=== PATIENT | male | born 1945 | race Caucasian/White ===

== ENCOUNTER 2018-01-18 19:57 | Inpatient (IN) | payer MEDICARE, MEDICAID ==
--- NOTE | 2018-01-18 20:12 | ER Document Report ---
ED General - General Stated Complaint: ALTERED MENTAL STATUS Time Seen by Provider: 01/18/18 20:05 Notes: Patient is a 72-year-old male that comes by EMS from home for chief complaint of altered mental status. Family reported to EMS that patient has had decline in mental status for the past 4 days where he has become disoriented to person, place, time. EMS states that patient was reported to have underlying dementia but never has been this confused. Patient uncooperative and had to be made to come per EMS. Patient is on no daily medications, only reported medical history otherwise is colon cancer, family not present, patient unable to give me any details about this. History is very limited due to patient's mental status, but he keeps repeating, "I'm all messed up", and "there is stuff inside me" while pointing at his arms. - Related Data Allergies/Adverse Reactions: No Known Allergies Allergy (Verified 01/18/18 20:47) Past Medical History - General Information source: Patient, Emergency Med Personnel - Social History Smoking Status: Unknown if Ever Smoked Lives with: Family Family History: Reviewed & Not Pertinent Neurological Medical History: Reports: Other - Dementia Malignancy Medical History: Reports Hx Colorectal Cancer Review of Systems - Review of Systems Constitutional: See HPI EENT: No symptoms reported Cardiovascular: No symptoms reported Respiratory: No symptoms reported Gastrointestinal: No symptoms reported Genitourinary: No symptoms reported Male Genitourinary: No symptoms reported Musculoskeletal: No symptoms reported Skin: No symptoms reported Hematologic/Lymphatic: No symptoms reported Neurological/Psychological: See HPI Physical Exam - Vital signs Vitals: Resp 29 H 01/18/18 21:00 - General General appearance: Anxious In distress: None - Patient is thin, covered in urine and feces with very soiled clothing, moves weakly but it does not appear to be in distress - HEENT Head: Normocephalic, Atraumatic Eyes: Normal Conjunctiva: Normal Extraocular movements intact: Yes Eyelashes: Normal Pupils: PERRL Mucous membranes: Normal Pharynx: Normal Neck: Normal - Respiratory Respiratory status: No respiratory distress. No: Respiratory distress, Labored Breath sounds: Normal, Other - Scattered rhonchi, no overt rales, no wheezing. No: Decreased air movement - Cardiovascular Rhythm: Regular. No: Tachycardia Heart sounds: Normal auscultation, S1 appreciated, S2 appreciated - Abdominal Inspection: Normal Tenderness: Nontender. No: Tender, Guarding - Back Back: Normal, Nontender - Extremities General upper extremity: Normal inspection, Nontender, Normal ROM, Normal strength General lower extremity: Other - There is ecchymosis noted on his thighs and calves, only ecchymosis on the back of the legs, none on the front, distal pulses intact, movement intact, sensation intact - Neurological Cognition: Confused Orientation: Disoriented to person, Disoriented to place, Disoriented to time, Disoriented to events [place] Coma Scale Motor: Obeys Commands - Patient will obey some commands Speech: Normal. No: Dysarthria Cranial nerves: Normal. No: Facial palsy Motor strength normal: LUE, RUE, LLE, RLE - Skin Skin Temperature: Warm Skin Moisture: Dry Skin Color: Other - slightly jaundiced Skin irregularity: other - Approximately stage II decubitus ulcer Course - Re-evaluation Re-evalutation: Patient is very thin, confused, smells of both urine and feces, has heavily stained and soiled undergarments and shirt. He is awake and complaining but not oriented. 01/19/18 CT of the head and chest x-ray are unremarkable. CBC shows normocytic anemia with a hemoglobin of 7.2, I did check and found he had no bloody stools, no abdominal pain on exam. Vital signs are unremarkable. Unsure if he is chronically anemic. Chemistry shows dehydration with bicarbonate of 18, given IV fluids. Otherwise nonspecific. I spoke with family, they did relate increased confusion, not eating, and to decreasing strength. They state that he generally refuses to be seen by his primary care provider and therefore they do not see him very often. Urinalysis shows infection, given Rocephin. Called and spoke with Dr. Carroll, patient will be transfused 2 units packed red blood cells, admitted to the medical floor. - Vital Signs Vital signs: Temp Pulse Resp BP Pulse Ox 98.1 F 98 23 H 107/61 94 01/19/18 04:12 01/19/18 04:12 01/19/18 04:12 01/19/18 04:12 01/19/18 04:12 - Laboratory Result Diagrams: 01/18/18 21:28 01/18/18 21:28 Laboratory results interpreted by me: 01/18/18 01/18/18 01/18/18 21:28 21:28 21:28 RBC 2.55 L Hgb 7.2 L Hct 23.1 L MCHC 31.3 L RDW 19.5 H Seg Neutrophils % 81.9 H Lymphocytes % 11.7 L Retic Count (auto) APTT 40.1 H Carbon Dioxide 18 L BUN 39 H Creatinine 1.29 H Est GFR (Non-Af Amer) 55 L Iron TIBC Total Bilirubin 2.0 H Direct Bilirubin 0.9 H Alkaline Phosphatase 190 H Ammonia Albumin 3.3 L Folate Urine Ketones Urine Blood Urine Urobilinogen Ur Leukocyte Esterase Crossmatch 01/18/18 01/18/18 01/18/18 21:28 21:28 21:28 RBC Hgb Hct MCHC RDW Seg Neutrophils % Lymphocytes % Retic Count (auto) 4.77 H APTT Carbon Dioxide BUN Creatinine Est GFR (Non-Af Amer) Iron < 10.1 L TIBC 236 L Total Bilirubin Direct Bilirubin Alkaline Phosphatase Ammonia < 8.7 L Albumin Folate 2.16 L Urine Ketones Urine Blood Urine Urobilinogen Ur Leukocyte Esterase Crossmatch 01/18/18 01/18/18 22:20 23:33 RBC Hgb Hct MCHC RDW Seg Neutrophils % Lymphocytes % Retic Count (auto) APTT Carbon Dioxide BUN Creatinine Est GFR (Non-Af Amer) Iron TIBC Total Bilirubin Direct Bilirubin Alkaline Phosphatase Ammonia Albumin Folate Urine Ketones 20 H Urine Blood MODERATE H Urine Urobilinogen 4.0 H Ur Leukocyte Esterase LARGE H Crossmatch See Detail Discharge - Discharge Clinical Impression: Altered mental status Qualifiers: Altered mental status type: unspecified Qualified Code(s): R41.82 - Altered mental status, unspecified Urinary tract infection Qualifiers: Urinary tract infection type: site unspecified Hematuria presence: without hematuria Qualified Code(s): N39.0 - Urinary tract infection, site not specified Anemia Qualifiers: Anemia type: unspecified type Qualified Code(s): D64.9 - Anemia, unspecified Condition: Stable Disposition: ADMITTED INPATIENT Admitting Provider: Carroll Unit Admitted: Medical Floor
--- NOTE | 2018-01-18 20:51 | RADIOLOGY REPORT (SQ) ---
EXAM DESCRIPTION: CT HEAD WITHOUT COMPLETED DATE/TIME: 01/18/2018 8:40 pm REASON FOR STUDY: AMS COMPARISON: None. TECHNIQUE: Axial images acquired through the brain without intravenous contrast. Images reviewed wi th bone, brain and subdural windows. Images stored on PACS. All CT scanners at this facility use dose modulation, iterative reconstruction, and/or weight based d osing when appropriate to reduce radiation dose to as low as reasonably achievable (ALARA). [facility]: Dose Right [facility]: CareDose [facility]: Dose Right [facility]: Teradose 4D [facility]: Smart STEERads RADIATION DOSE: CT Rad equipment meets quality standard of care and radiation dose reduction techniq ues were employed. CTDIvol: 67.0 mGy. DLP: 1316 mGy-cm. mGy. LIMITATIONS: None. FINDINGS: VENTRICLES: Normal size and contour. CEREBRUM: No masses. No hemorrhage. No midline shift. No evidence for acute infarction. Cortical a trophy. Normal bryan/white matter differentiation. No areas of low density in the white matter. CEREBELLUM: No masses. No hemorrhage. No alteration of density. No evidence for acute infarction. EXTRAAXIAL SPACES: No fluid collections. No masses. ORBITS AND GLOBE: No intra- or extraconal masses. Normal contour of globe without masses. CALVARIUM: No fracture. PARANASAL SINUSES: No fluid or mucosal thickening. SOFT TISSUES: No mass or hematoma. OTHER: No other significant finding. IMPRESSION: Involutional changes of aging with no acute intracranial process. EVIDENCE OF ACUTE STROKE: NO. COMMENT: Quality ID # [id number]: Final reports with documentation of one or more dose reduction techniques (e.g., Automated exposure control, adjustment of the mA and/or kV according to patient size, use of iterative reconstruction technique) TECHNICAL DOCUMENTATION: JOB ID: [id number] [employer]- All Rights Reserved Reading location - IP/workstation name: [email or web address]
--- NOTE | 2018-01-18 20:52 | RADIOLOGY REPORT (SQ) ---
EXAM DESCRIPTION: CHEST SINGLE VIEW COMPLETED DATE/TIME: 01/18/2018 8:36 pm REASON FOR STUDY: AMS COMPARISON: None. EXAM PARAMETERS: NUMBER OF VIEWS: One view. TECHNIQUE: Single frontal radiographic view of the chest acquired. RADIATION DOSE: NA LIMITATIONS: None. FINDINGS: LUNGS AND PLEURA: The lungs are hyperexpanded. There is no pulmonary infiltrate or pleura l effusion. There is no mass. MEDIASTINUM AND HILAR STRUCTURES: There are some calcified hilar nodes. HEART AND VASCULAR STRUCTURES: Heart normal in size. Normal vasculature. BONES: No acute findings. HARDWARE: None in the chest. OTHER: No other significant finding. IMPRESSION: Chronic lung changes with no acute cardiopulmonary disease. TECHNICAL DOCUMENTATION: JOB ID: [id number] [employer]- All Rights Reserved Reading location - IP/workstation name: [email or web address]
[2018-01-18 21:38] LABS: ABSOLUTE LYMPHOCYTES (AUTO) 0.9 10^3/uL (0.5-4.7); ABSOLUTE MONOCYTES (AUTO) 0.5 10^3/uL (0.1-1.4); ABSOLUTE NEUT (AUTO) 6.3 10^3/uL (1.7-8.2); BASOPHILS % (AUTO) 0.3 % (0-2); EOSINOPHILS % (AUTO) 0.1 % (0-6); HEMATOCRIT 23.1 % (37.9-51.0); LYMPHOCYTES % (AUTO) 11.7 % (13-45); MEAN CORPUSCULAR HEMOGLOBIN 28.4 pg (27.0-33.4); MEAN CORPUSCULAR HGB CONC 31.3 g/dL (32.0-36.0); MEAN CORPUSCULAR VOLUME 91 fl (80-97); PLATELET COUNT 264 10^3/uL (150-450); RED BLOOD COUNT 2.55 10^6/uL (4.35-5.55); RED CELL DISTRIBUTION WIDTH 19.5 % (11.5-14.0); SEGMENTED NEUTROPHILS % (AUTO) 81.9 % (42-78); TOTAL CELLS COUNTED % (AUTO) 100 %; WHITE BLOOD COUNT 7.7 10^3/uL (4.0-10.5)
[2018-01-18 21:43] LABS: HEMOGLOBIN 7.2 g/dL (13.5-17.0)
[2018-01-18 21:46] LABS: INTERNATIONAL RATION (INR) 1.04; PROTHROMBIN TIME 14.3 SEC (11.4-15.4)
[2018-01-18 21:47] LABS: PARTIAL THROMBOPLASTIN TIME 40.1 SEC (23.5-35.8)
[2018-01-18 21:59] LABS: ALANINE AMINOTRANSFERASE 24 U/L (21-72); ALBUMIN 3.3 g/dL (3.5-5.0); ALKALINE PHOSPHATASE 190 U/L (38-126); ANION GAP 19 (5-19); ASPARTATE AMINO TRANSFERASE 20 U/L (17-59); BILIRUBIN,DIRECT 0.9 mg/dL (0.0-0.4); BLOOD UREA NITROGEN 39 mg/dL (7-20); CARBON DIOXIDE 18 mmol/L (22-30); CHLORIDE 101 mmol/L (98-107); CREATINE KINASE 113 U/L (55-170); GLUCOSE 105 mg/dL (75-110); POTASSIUM 4.6 mmol/L (3.6-5.0); SODIUM 137.6 mmol/L (137-145); TOTAL PROTEIN 6.3 g/dL (6.3-8.2)
[2018-01-18] MEDS ORDERED: NORMAL SALINE 1000 ML 1,000 ML IV ONE (22:11)
[2018-01-19 00:12] LABS: APPEARANCE,URINE CLOUDY; BILIRUBIN,URINE NEGATIVE (NEGATIVE); COLOR,URINE AMBER; GLUCOSE, URINE NEGATIVE (NEGATIVE); KETONES,URINE 20 mg/dL (NEGATIVE); LEUKOCYTE ESTERASE,URINE LARGE (NEGATIVE); NITRITE,URINE NEGATIVE (NEGATIVE); PROTEIN,URINE NEGATIVE (NEGATIVE); URINE SPECIFIC GRAVITY 1.015
[2018-01-19] MEDS ORDERED: CEFTRIAXONE 1 GM/D5W RTU 1 GM/50 ML RTUPB IV ONE (00:17)
[2018-01-19] MEDS ORDERED: NORMAL SALINE 250 ML IV PRN ×2 (00:22)
[2018-01-19 00:47] LABS: ABSOLUTE RETICS # 0.122 10^6/uL (0.028-0.122); RETICULOCYTE COUNT (AUTO) 4.77 % (0.66-2.85)
[2018-01-19 01:17] LABS: IRON(TIBC) < 10.1 ug/dL (49-181)
[2018-01-19] MEDS ORDERED: CEFTRIAXONE INJ 1000 MG VIAL ONE (01:49)
[2018-01-19 02:18] LABS: FOLATE 2.16 ng/mL (>2.76)
--- NOTE | 2018-01-19 08:04 | PDOC H&P ---
History of Present Illness Admission Date/PCP: 01/19/18 00:29 MARTA MITCHELL MD Patient complains of: confusion History of Present Illness: DAVID CROCKER is a 72 year old 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 When I last saw him in 2014, he was on citalopram and alfuzosin. 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 1997 & 2001 bowel obstruction. He had neurogenic bladder and hesitancy and fecal incontinence. 2004 Cscop was ok. Past Medical History Cardiac Medical History: Reports: None Pulmonary Medical History: Reports: None EENT Medical History: Reports: None Neurological Medical History: Reports: None, Other - Dementia Endocrine Medical History: Reports: None Renal/ Medical History: Reports: None Malignancy Medical History: Reports: Colorectal Cancer GI Medical History: Reports: None Musculoskeltal Medical History: Reports: Arthritis Skin Medical History: Reports: None Psychiatric Medical History: Reports: Depression Traumatic Medical History: Reports: Other - 1996 pelvic fracture Hematology: Reports: None Infectious Medical History: Reports: None Past Surgical History Past Surgical History: Reports: Other - colectomy and 2 bowel obstructions Social History Information Source: Dr. Ledezma Lives with: Family Smoking Status: Current Every Day Smoker Number of Years Smokin Frequency of Alcohol Use: None Hx Recreational Drug Use: No Hx Prescription Drug Abuse: No - Advance Directive Resuscitation Status: Full Code Family History Family History: Reviewed & Not Pertinent Parental Family History Reviewed: Yes Children Family History Reviewed: Yes Sibling(s) Family History Reviewed.: Yes Medication/Allergy Home Medications: Unobtainable [Unobtainable] 01/19/18 Allergies/Adverse Reactions: No Known Allergies Allergy (Verified 01/18/18 20:47) Review of Systems ROS unobtainable: Due to mental status Physical Exam Vital Signs: Temp Pulse Resp BP Pulse Ox 98.0 F 91 24 H 100/64 93 01/19/18 06:21 01/19/18 06:21 01/19/18 06:21 01/19/18 06:21 01/19/18 06:21 Intake & Output 01/17/18 01/18/18 01/19/18 07:59 07:59 07:59 Intake Total 528 Balance 528 Weight 123 lb 7.342 oz General appearance: PRESENT: no acute distress Eye exam: ABSENT: conjunctival injection, scleral icterus Mouth exam: PRESENT: neck supple Neck exam: ABSENT: lymphadenopathy, tenderness, thyromegaly, tracheal deviation Respiratory exam: PRESENT: clear to auscultation claudia Cardiovascular exam: ABSENT: diastolic murmur, irregular rhythm, systolic murmur GI/Abdominal exam: ABSENT: mass, organolmegaly, tenderness Extremities exam: ABSENT: pedal edema Neurological exam: ABSENT: oriented to time, oriented to situation Psychiatric exam: ABSENT: anxious Focused psych exam: PRESENT: paranoid Results Laboratory Results: Abnormal - 24 hr 01/18/18 01/18/18 01/18/18 21:28 21:28 21:28 RBC 2.55 L Hgb 7.2 L Hct 23.1 L MCHC 31.3 L RDW 19.5 H Seg Neutrophils % 81.9 H Lymphocytes % 11.7 L Retic Count (auto) APTT 40.1 H Carbon Dioxide 18 L BUN 39 H Creatinine 1.29 H Est GFR (Non-Af Amer) 55 L Iron TIBC Total Bilirubin 2.0 H Direct Bilirubin 0.9 H Alkaline Phosphatase 190 H Ammonia Albumin 3.3 L Folate Urine Ketones Urine Blood Urine Urobilinogen Ur Leukocyte Esterase Crossmatch 01/18/18 01/18/18 01/18/18 21:28 21:28 21:28 RBC Hgb Hct MCHC RDW Seg Neutrophils % Lymphocytes % Retic Count (auto) 4.77 H APTT Carbon Dioxide BUN Creatinine Est GFR (Non-Af Amer) Iron < 10.1 L TIBC 236 L Total Bilirubin Direct Bilirubin Alkaline Phosphatase Ammonia < 8.7 L Albumin Folate 2.16 L Urine Ketones Urine Blood Urine Urobilinogen Ur Leukocyte Esterase Crossmatch 01/18/18 01/18/18 22:20 23:33 RBC Hgb Hct MCHC RDW Seg Neutrophils % Lymphocytes % Retic Count (auto) APTT Carbon Dioxide BUN Creatinine Est GFR (Non-Af Amer) Iron TIBC Total Bilirubin Direct Bilirubin Alkaline Phosphatase Ammonia Albumin Folate Urine Ketones 20 H Urine Blood MODERATE H Urine Urobilinogen 4.0 H Ur Leukocyte Esterase LARGE H Crossmatch See Detail Impressions: Chest X-Ray 01/18/18 20:12 IMPRESSION: Chronic lung changes with no acute cardiopulmonary disease. Head CT 01/18/18 20:12 IMPRESSION: Involutional changes of aging with no acute intracranial process. EVIDENCE OF ACUTE STROKE: NO. Assessment & Plan - Diagnosis (1) Acute cystitis without hematuria Plan: cefftri (2) Delusional disorder Is this a current diagnosis for this admission?: Yes Plan: probably needs SNF from now on (3) Enlarged prostate with lower urinary tract symptoms (LUTS) Qualifiers: Lower urinary tract symptom detail: urinary hesitancy Qualified Code(s): N40.1 - Benign prostatic hyperplasia with lower urinary tract symptoms; R39.11 - Hesitancy of micturition; R39.11 - Hesitancy of micturition Is this a current diagnosis for this admission?: Yes Plan: tamsulosin (4) Atonic neurogenic bladder Is this a current diagnosis for this admission?: Yes (5) Malignant neoplasm of rectum Is this a current diagnosis for this admission?: Yes (6) Protein deficiency anemia Is this a current diagnosis for this admission?: Yes Plan: got 2u prbc (7) Hyperbilirubinemia Is this a current diagnosis for this admission?: Yes Plan: US - Inpatient Certification Based on my medical assessment, after consideration of the patient's comorbidities, presenting symptoms, or acuity I expect that the services needed warrant INPATIENT care.: Yes I certify that my determination is in accordance with my understanding of Medicare's requirements for reasonable and necessary INPATIENT services [42 CFR 412.3e].: Yes Medical Necessity: Significant Comorbidiites Make Outpatient Treatment Too Risky , Need Close Monitoring Due to Risk of Patient Decompensation, Need for IV Antibiotics, Risk of Complication if Not Cared For in Hospital, Risk of Diagnosis Which Will Require Inpatient Eval/Care/Monitoring
[2018-01-19] MEDS: ENOXAPARIN SODIUM INJ 30 MG/0.3 ML DISP.SYRIN SUBCUT SCH (11:30)
[2018-01-19] MEDS: FAMOTIDINE 20 MG TABLET PO SCH ×2 (11:30→22:51)
--- NOTE | 2018-01-19 12:58 | Progress Note ---
Provider Note Provider Note: I have interviewed and evaluated this patient today. His daughter and son- in-law are at bedside. Secondary to patient's advanced dementia I obtain history from the family. Report given to me is that this patient has been declining for several years in terms of his overall capacity. He now has fecal and urinary incontinence and wears an adult diaper. He has lost a lot of weight over the last few months and eats very little. He is able to speak. He has been walking for several weeks. He has agitation in the home and refuses to let his and family help him with for example bathing. Family is extremely frustrated and at their wits end. On exam the patient is lying in his hospital bed with soft wrist restraints in place as he has taken out IVs during the hospitalization thus far. He is unable to recall his and daughter's names. He does not know where he is. Knows his own name. He is cachectic with significant bitemporal wasting. Regular rate and rhythm with systolic murmur. Lungs are clear to auscultation bilaterally. Abdomen is soft nontender nondistended with normal bowel sounds. Extremities are [place] P neck. Assessment and plan. 72-year-old man with possible Alzheimer's dementia. His primary care doctor, Dr. Carroll notes that he has had delusional disorder for many years. I have learned that his mother with Alzheimer's dementia as well. Patient's fast score is 7E. Though he has lost ambulatory ability which would make him a 7 day but his speech is fluent at this point. Perhaps he has a component of vascular dementia as well. He has significant weight loss. I believe he would meet hospice criteria either for dementia or abnormal weight loss. I had a long discussion with the family about home hospice care and they are amenable to learning more about it and to talk into hospice company and case management will offer choices at this time. Will offer patient food and he will eat and drink as he desires. The family agrees that starting a medication for anxiety is reasonable and so I will start Ativan 0.5 mg IV every 8 hours for now. We will monitor his response closely and titrate as needed or change to a different medication. We will continue to treat his urinary tract infection and I have ordered a urine culture. Abdominal ultrasound is pending to evaluate abnormal LFTs. Patient was admitted by his primary care doctor with evidence of iron deficiency anemia and he is being transfused. He is hemodynamically stable. I believe that restraints are indicated now, soft wrist , not for violent purposes but in order to protect his IV. Hopefully we can help him become less agitated and remove the wrist restraints soon.
[2018-01-19] MEDS: LORAZEPAM INJ 2 MG/1 ML VIAL IV PRN ×2 (13:57→21:59)
[2018-01-19] MEDS: TAMSULOSIN HCL 0.4 MG CAP.SR.24H PO SCH (17:37)
[2018-01-19] MEDS ORDERED: CEFTRIAXONE 1 GM/D5W RTU 1 GM/50 ML RTUPB IV SCH (22:00)
[2018-01-19] MEDS: CEFTRIAXONE SODIUM 1,500 MG in NORMAL SALINE 100 ML IV SCH (22:49)
--- NOTE | 2018-01-19 22:59 | RADIOLOGY REPORT (SQ) ---
EXAM DESCRIPTION: U/S ABDOMEN COMPLETE W/DOPPLER COMPLETED DATE/TIME: 01/19/2018 9:40 pm REASON FOR STUDY: conjugated bili up COMPARISON: None. TECHNIQUE: Dynamic and static grayscale images acquired of the abdomen and recorded on PACS. Additio nal selected color Doppler and spectral images recorded. LIMITATIONS: None. FINDINGS: PANCREAS: No masses. Visualized pancreatic duct normal caliber. LIVER: No masses. Echotexture normal. LIVER VASCULATURE: Normal directional flow of the main portal vein and hepatic veins. GALLBLADDER: Surgically absent. ULTRASOUND-DETECTED GUNN'S SIGN: Negative. INTRAHEPATIC DUCTS AND COMMON DUCT: CBD and intrahepatic ducts normal caliber. No filling defects. INFERIOR VENA CAVA: Normal flow. AORTA: No aneurysm. RIGHT KIDNEY: Normal size. Normal echogenicity. No solid or suspicious masses. No hydronephros is. No calcifications. LEFT KIDNEY: Normal size. Normal echogenicity. No solid or suspicious masses. No hydronephrosi s. No calcifications. SPLEEN: Normal size. No solid masses. PERITONEAL AND PLEURAL SPACES: No ascites or effusions. OTHER: No other significant finding. IMPRESSION: No acute finding. TECHNICAL DOCUMENTATION: JOB ID: [id number] [employer]- All Rights Reserved Reading location - IP/workstation name: [email or web address]
[2018-01-20] MEDS: LORAZEPAM INJ 2 MG/1 ML VIAL IV PRN ×3 (03:37→19:17)
[2018-01-20 05:40] LABS: ANION GAP 14 (5-19); BLOOD UREA NITROGEN 30 mg/dL (7-20); CALCIUM 8.6 mg/dL (8.4-10.2); CARBON DIOXIDE 20 mmol/L (22-30); CHLORIDE 109 mmol/L (98-107); GLUCOSE 89 mg/dL (75-110); POTASSIUM 4.3 mmol/L (3.6-5.0); SODIUM 142.9 mmol/L (137-145)
[2018-01-20] MEDS: ENOXAPARIN SODIUM INJ 30 MG/0.3 ML DISP.SYRIN SUBCUT SCH (09:26)
[2018-01-20] MEDS: FOLIC ACID 1 MG TABLET PO SCH (09:26)
[2018-01-20] MEDS: FAMOTIDINE 20 MG TABLET PO SCH ×2 (09:26→22:03)
[2018-01-20] MEDS ORDERED: NORMAL SALINE 1000 ML 1,000 ML IV PRN (11:43)
[2018-01-20 12:30] LABS: HEMATOCRIT 30.8 % (37.9-51.0); MEAN CORPUSCULAR HEMOGLOBIN 28.8 pg (27.0-33.4); MEAN CORPUSCULAR HGB CONC 32.7 g/dL (32.0-36.0); MEAN CORPUSCULAR VOLUME 88 fl (80-97); PLATELET COUNT 230 10^3/uL (150-450); RED CELL DISTRIBUTION WIDTH 18.2 % (11.5-14.0); WHITE BLOOD COUNT 6.5 10^3/uL (4.0-10.5)
[2018-01-20 12:31] LABS: HEMOGLOBIN 10.1 g/dL (13.5-17.0)
[2018-01-20 12:46] LABS: ALANINE AMINOTRANSFERASE 22 U/L (21-72); ALBUMIN 2.9 g/dL (3.5-5.0); ALKALINE PHOSPHATASE 146 U/L (38-126); ANION GAP 14 (5-19); ASPARTATE AMINO TRANSFERASE 22 U/L (17-59); BILIRUBIN,TOTAL 2.1 mg/dL (0.2-1.3); BLOOD UREA NITROGEN 28 mg/dL (7-20); CALCIUM 8.6 mg/dL (8.4-10.2); CARBON DIOXIDE 20 mmol/L (22-30); CHLORIDE 109 mmol/L (98-107); GLUCOSE 101 mg/dL (75-110); POTASSIUM 3.6 mmol/L (3.6-5.0); SODIUM 142.5 mmol/L (137-145); TOTAL PROTEIN 5.9 g/dL (6.3-8.2)
[2018-01-20] MEDS: TAMSULOSIN HCL 0.4 MG CAP.SR.24H PO SCH (17:27)
--- NOTE | 2018-01-20 18:43 | PDOC PROGRESS REPORT ---
Subjective Progress Note for:: 01/20/18 Subjective:: Patient has advanced Alzheimer's dementia and cannot give me an appropriate history. Per his he has calm down considerably with low-dose Ativan. He is able to eat a little bit today. She spoke with hospice yesterday and is on board for discharge with home hospice. Reason For Visit: ALTERED MENTAL STATUS,UTI Physical Exam Vital Signs: Temp Pulse Resp BP Pulse Ox 97.8 F 79 17 91/56 L 100 01/20/18 16:11 01/20/18 15:24 01/20/18 15:24 01/20/18 15:24 01/20/18 16:11 Intake & Output 01/19/18 01/20/18 01/21/18 06:59 06:59 07:59 Intake Total 178 2045 0 Output Total 250 Balance 178 5 -250 Weight 56 kg 55 kg General appearance: PRESENT: disheveled, mild distress Head exam: PRESENT: atraumatic, normocephalic, other - Significant bitemporal wasting Eye exam: PRESENT: conjunctiva pink Mouth exam: PRESENT: tongue midline Respiratory exam: PRESENT: clear to auscultation claudia, unlabored. ABSENT: rales , rhonchi, wheezes Cardiovascular exam: PRESENT: RRR, systolic murmur GI/Abdominal exam: PRESENT: normal bowel sounds, soft. ABSENT: distended, guarding, tenderness Extremities exam: ABSENT: pedal edema Neurological exam: PRESENT: oriented to person. ABSENT: oriented to place, oriented to situation Psychiatric exam: PRESENT: anxious Skin exam: PRESENT: dry, warm, other - ecchymoses where patient has fallen and sustained trauma in the home. Results Laboratory Results: 01/20/18 12:06 01/20/18 12:06 01/20/18 01/20/18 01/20/18 04:38 12:06 12:06 WBC 6.5 RBC 3.50 L Hgb 10.1 L D Hct 30.8 L MCV 88 MCH 28.8 MCHC 32.7 RDW 18.2 H Plt Count 230 Sodium 142.9 142.5 Potassium 4.3 3.6 Chloride 109 H 109 H Carbon Dioxide 20 L 20 L Anion Gap 14 14 BUN 30 H 28 H Creatinine 0.76 0.77 Est GFR ( Amer) > 60 > 60 Est GFR (Non-Af Amer) > 60 > 60 Glucose 89 101 Calcium 8.6 8.6 Total Bilirubin 2.1 H AST 22 ALT 22 Alkaline Phosphatase 146 H Total Protein 5.9 L Albumin 2.9 L Impressions: Chest X-Ray 01/18/18 20:12 IMPRESSION: Chronic lung changes with no acute cardiopulmonary disease. Head CT 01/18/18 20:12 IMPRESSION: Involutional changes of aging with no acute intracranial process. EVIDENCE OF ACUTE STROKE: NO. Abdomen Ultrasound 01/19/18 00:00 IMPRESSION: No acute finding. Assessment & Plan - Diagnosis (1) Iron deficiency anemia Is this a current diagnosis for this admission?: Yes Plan: Patient was admitted by his primary care doctor yesterday. He was found to be anemic and he was transfused 2 units of packed red blood cells by the primary care doctor. Patient has evidence of iron deficiency and iron and folic acid have been started. He also has poor oral intake in general. No evidence of active bleeding now. (2) Alzheimer's dementia Is this a current diagnosis for this admission?: Yes Plan: Advanced. Fast score 6E. Given this and his abnormal weight loss the patient meets criteria for hospice. He has been accepted by local hospice company and will be discharged with home hospice. (3) Acute cystitis without hematuria Is this a current diagnosis for this admission?: Yes Plan: Growing gram-negative rods. Continue ceftriaxone. (4) Delusional disorder Is this a current diagnosis for this admission?: Yes (5) Enlarged prostate with lower urinary tract symptoms (LUTS) Qualifiers: Lower urinary tract symptom detail: urinary hesitancy Qualified Code(s): N40.1 - Benign prostatic hyperplasia with lower urinary tract symptoms; R39.11 - Hesitancy of micturition; R39.11 - Hesitancy of micturition Is this a current diagnosis for this admission?: Yes Plan: Continue current medications. (6) Agitation Is this a current diagnosis for this admission?: Yes Plan: Related to Alzheimer's dementia. Patient has responded well to 0.5 mg of Ativan IV every 8 hours as needed agitation. - Time Time Spent with patient: 25-34 minutes Anticipated discharge: Hospice - Inpatient Certification Based on my medical assessment, after consideration of the patient's comorbidities, presenting symptoms, or acuity I expect that the services needed warrant INPATIENT care.: Yes I certify that my determination is in accordance with my understanding of Medicare's requirements for reasonable and necessary INPATIENT services [42 CFR 412.3e].: Yes Medical Necessity: Need For IV Fluids, Need for IV Antibiotics
[2018-01-20] MEDS: CEFTRIAXONE SODIUM 1,500 MG in NORMAL SALINE 100 ML IV SCH (21:54)
[2018-01-21 05:58] LABS: ANION GAP 8 (5-19); BLOOD UREA NITROGEN 29 mg/dL (7-20); CARBON DIOXIDE 22 mmol/L (22-30); CHLORIDE 115 mmol/L (98-107); GLUCOSE 100 mg/dL (75-110); POTASSIUM 3.8 mmol/L (3.6-5.0); SODIUM 145.1 mmol/L (137-145)
[2018-01-21] MEDS: ENOXAPARIN SODIUM INJ 30 MG/0.3 ML DISP.SYRIN SUBCUT SCH (10:19)
[2018-01-21] MEDS: FOLIC ACID 1 MG TABLET PO SCH (10:21)
[2018-01-21] MEDS: FAMOTIDINE 20 MG TABLET PO SCH ×2 (10:21→21:51)
--- NOTE | 2018-01-21 17:33 | PDOC PROGRESS REPORT ---
Subjective Progress Note for:: 01/21/18 Subjective:: Mr. Wilks is more calm today per staff. He was able to eat some today. He eats better with family that he does with staff. We have been able to remove his restraints. He tells me that he feels okay and would like to get home as soon as possible. Other than that what he is saying is nonsensical. Reason For Visit: ALTERED MENTAL STATUS,UTI Physical Exam Vital Signs: Temp Pulse Resp BP Pulse Ox 97.8 F 87 20 96/55 L 100 01/21/18 13:16 01/21/18 13:16 01/21/18 13:16 01/21/18 13:16 01/21/18 13:16 Intake & Output 01/20/18 01/21/18 01/22/18 05:59 06:59 06:59 Intake Total Output Total Balance Weight General appearance: PRESENT: no acute distress, thin, other - Severe bitemporal wasting Head exam: PRESENT: atraumatic Eye exam: PRESENT: conjunctiva pink, EOMI Respiratory exam: PRESENT: clear to auscultation claudia, unlabored. ABSENT: rales , rhonchi, wheezes Cardiovascular exam: PRESENT: RRR, systolic murmur GI/Abdominal exam: PRESENT: normal bowel sounds, soft. ABSENT: distended, guarding, tenderness Extremities exam: ABSENT: pedal edema Neurological exam: PRESENT: awake, oriented to person. ABSENT: oriented to place, oriented to situation Psychiatric exam: PRESENT: flat affect. ABSENT: anxious Skin exam: PRESENT: dry, warm, other - multiple eccymoses Results Laboratory Results: 01/20/18 12:06 01/21/18 04:50 01/21/18 04:50 Sodium 145.1 H Potassium 3.8 Chloride 115 H Carbon Dioxide 22 Anion Gap 8 BUN 29 H Creatinine 0.79 Est GFR ( Amer) > 60 Est GFR (Non-Af Amer) > 60 Glucose 100 Calcium 8.0 L Impressions: Chest X-Ray 01/18/18 20:12 IMPRESSION: Chronic lung changes with no acute cardiopulmonary disease. Head CT 01/18/18 20:12 IMPRESSION: Involutional changes of aging with no acute intracranial process. EVIDENCE OF ACUTE STROKE: NO. Abdomen Ultrasound 01/19/18 00:00 IMPRESSION: No acute finding. Assessment & Plan - Diagnosis (1) Iron deficiency anemia Is this a current diagnosis for this admission?: Yes Plan: Patient received blood transfusion from his primary care doctor who admitted him. Hemoglobin is stable. No evidence of active bleeding. Will check CBC again tomorrow. (2) Alzheimer's dementia Is this a current diagnosis for this admission?: Yes Plan: Progressive. Patient's family has accepted home hospice care and he will be discharged to home with hospice services. (3) Acute cystitis without hematuria Is this a current diagnosis for this admission?: Yes Plan: Continue ceftriaxone until culture data returns. (4) Delusional disorder Is this a current diagnosis for this admission?: Yes Plan: Long-standing per PCP. This, by chart review, seems to predate his Alzheimer's dementia. (5) Enlarged prostate with lower urinary tract symptoms (LUTS) Qualifiers: Lower urinary tract symptom detail: urinary hesitancy Qualified Code(s): N40.1 - Benign prostatic hyperplasia with lower urinary tract symptoms; R39.11 - Hesitancy of micturition; R39.11 - Hesitancy of micturition Is this a current diagnosis for this admission?: Yes Plan: Continue with Logan catheter and medication management for now. (6) Agitation Is this a current diagnosis for this admission?: Yes Plan: She has responded very well to Ativan 0.5 mg IV every 8 hours. Continue. - Time Time Spent with patient: 15-24 minutes Medications reviewed and adjusted accordingly: Yes - Inpatient Certification Based on my medical assessment, after consideration of the patient's comorbidities, presenting symptoms, or acuity I expect that the services needed warrant INPATIENT care.: Yes I certify that my determination is in accordance with my understanding of Medicare's requirements for reasonable and necessary INPATIENT services [42 CFR 412.3e].: Yes Medical Necessity: Risk of Complication if Not Cared For in Hospital
[2018-01-21] MEDS ORDERED: LORAZEPAM 0.5 MG TABLET PO PRN (18:28)
[2018-01-21] MEDS: TAMSULOSIN HCL 0.4 MG CAP.SR.24H PO SCH (19:38)
[2018-01-21] MEDS: LORAZEPAM 0.5 MG TABLET PO PRN (19:39)
[2018-01-21] MEDS: CEFTRIAXONE SODIUM 1,500 MG in NORMAL SALINE 100 ML IV SCH (21:51)
[2018-01-22 05:50] LABS: HEMATOCRIT 27.3 % (37.9-51.0); HEMOGLOBIN 8.8 g/dL (13.5-17.0); MEAN CORPUSCULAR HEMOGLOBIN 28.6 pg (27.0-33.4); MEAN CORPUSCULAR HGB CONC 32.1 g/dL (32.0-36.0); MEAN CORPUSCULAR VOLUME 89 fl (80-97); PLATELET COUNT 182 10^3/uL (150-450); RED BLOOD COUNT 3.06 10^6/uL (4.35-5.55); RED CELL DISTRIBUTION WIDTH 18.1 % (11.5-14.0)
[2018-01-22 06:17] LABS: ALANINE AMINOTRANSFERASE 26 U/L (21-72); ALBUMIN 2.5 g/dL (3.5-5.0); ALKALINE PHOSPHATASE 218 U/L (38-126); ANION GAP 10 (5-19); ASPARTATE AMINO TRANSFERASE 30 U/L (17-59); BILIRUBIN,DIRECT 0.4 mg/dL (0.0-0.4); BILIRUBIN,TOTAL 0.9 mg/dL (0.2-1.3); BLOOD UREA NITROGEN 23 mg/dL (7-20); CALCIUM 8.4 mg/dL (8.4-10.2); CARBON DIOXIDE 23 mmol/L (22-30); CHLORIDE 109 mmol/L (98-107); GLUCOSE 86 mg/dL (75-110); SODIUM 142.1 mmol/L (137-145); TOTAL PROTEIN 5.1 g/dL (6.3-8.2)
[2018-01-22] MEDS: FAMOTIDINE 20 MG TABLET PO SCH (09:21)
[2018-01-22] MEDS: LORAZEPAM 0.5 MG TABLET PO PRN (09:22)
[2018-01-22] MEDS: FOLIC ACID 1 MG TABLET PO SCH (09:22)
[2018-01-22] MEDS: ENOXAPARIN SODIUM INJ 30 MG/0.3 ML DISP.SYRIN SUBCUT SCH (09:57)
[2018-01-22 15:56] VITALS: BP 114/90
--- NOTE | 2018-01-22 23:58 | PDOC DISCHARGE SUMMARY ---
General - Admit/Disc Date/PCP Admission Date/Primary Care Provider: 01/19/18 00:29 MARTA MITCHELL MD Discharge Date: 01/22/18 - Discharge Diagnosis (1) Iron deficiency anemia Is this a current diagnosis for this admission?: Yes Summary: It was admitted by his primary care doctor. When found to be anemic he received 2 units of packed red blood cells. Hemoglobin came up appropriately though did start to trend down. Patient is not eating and drinking well. He was also found to have a folic acid deficiency and he was discharged on a folate tab. Daily. (2) Alzheimer's dementia Is this a current diagnosis for this admission?: Yes Summary: She has advanced Alzheimer's dementia. He is incontinent of bowel and bladder. He can still speak multiple words over the course of the day and his fast score is 6E. However he also has abnormal weight loss and I believe the combination of these 2 diagnoses qualify him for hospice. He was excepted by [facility] for home hospice services. Family was thankful for the support of the hospice company. (3) Acute cystitis without hematuria Is this a current diagnosis for this admission?: Yes Summary: She was afebrile, did not report urinary symptoms, no white blood cell count, less than 100,000 CFU's in the urine culture. I did not discharge him on antibiotics. (4) Delusional disorder Is this a current diagnosis for this admission?: Yes Summary: Per the primary care note he has had a delusional disorder for many years. He was agitated during this hospitalization which seems to be related to his Alzheimer's dementia. I started him on Ativan 0.25 mg p.o. every 8 hours as needed agitation and he was discharged on this medication. He did respond well to the medication. (5) Enlarged prostate with lower urinary tract symptoms (LUTS) Is this a current diagnosis for this admission?: Yes Summary: Discharged on finasteride. (6) Agitation Is this a current diagnosis for this admission?: Yes Summary: She initially received Ativan 0.5 mg IV every 8 hours and this made him a little bit too sleepy. We decreased the dose to Ativan 0.25 mg p.o. every 8 hours and he responded very well to this medication, it reduced his agitation significantly. I discharged him on this medication. - Additional Information Resuscitation Status: Full Code Discharge Diet: As Tolerated Discharge Activity: Activity As Tolerated Prescriptions: Folic Acid [Folvite 1 mg Tablet] 1 mg PO DAILY 30 Days #30 tablet Lorazepam [Ativan 0.5 mg Tablet] 0.25 mg PO Q4HP PRN #20 tablet PRN Reason: Tamsulosin HCl [Flomax 0.4 mg Cap.sr] 0.4 mg PO PCSUPPER #30 cap.sr.24h Home Medications: Folic Acid [Folvite 1 mg Tablet] 1 mg PO DAILY 30 Days #30 tablet 01/22/18 Lorazepam [Ativan 0.5 mg Tablet] 0.25 mg PO Q4HP PRN #20 tablet 01/22/18 Tamsulosin HCl [Flomax 0.4 mg Cap.sr] 0.4 mg PO PCSUPPER #30 cap.sr.24h History of Present Illness Patient complains of: She had no complaints, family reported patient was not eating and he was getting weak History of Present Illness: DAVID CROCKER is a 72 year old male DAVID CROCKER is a 72 year old 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 When I last saw him in 2014, he was on citalopram and alfuzosin. 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 1997 & 2001 bowel obstruction. He had neurogenic bladder and hesitancy and fecal incontinence. 2003 Cscop was ok. He was found to be dirty and weak in the ER. He was admitted for abnormal weight loss, anemia, abnormal LFTs. Hospital Course Hospital Course: Please see hospital course by problem list. Physical Exam Vital Signs: Temp Pulse Resp BP Pulse Ox 97.6 F 64 16 114/90 H 100 01/22/18 15:48 01/22/18 15:48 01/22/18 15:48 01/22/18 15:48 01/22/18 15:48 Intake & Output 01/21/18 01/22/18 01/23/18 06:59 06:59 06:59 Intake Total 1137 Output Total 400 Balance 737 Weight 58.5 kg General appearance: PRESENT: no acute distress, thin, other - Significant bitemporal wasting. ABSENT: cooperative Head exam: PRESENT: atraumatic Eye exam: PRESENT: conjunctiva pink. ABSENT: scleral icterus Mouth exam: PRESENT: moist Respiratory exam: PRESENT: clear to auscultation claudia, unlabored. ABSENT: rales , rhonchi, wheezes Cardiovascular exam: PRESENT: RRR, systolic murmur Pulses: PRESENT: normal radial pulses Vascular exam: PRESENT: normal capillary refill GI/Abdominal exam: PRESENT: normal bowel sounds, soft. ABSENT: distended, tenderness Extremities exam: ABSENT: pedal edema Neurological exam: PRESENT: alert, altered, awake, oriented to person. ABSENT: oriented to place, oriented to situation Psychiatric exam: PRESENT: flat affect. ABSENT: anxious Skin exam: PRESENT: dry, warm, other - Multiple ecchymoses over arms and legs from falls at home Results Laboratory Results: 01/22/18 05:00 01/22/18 05:00 01/22/18 01/22/18 05:00 05:00 WBC 4.0 RBC 3.06 L Hgb 8.8 L Hct 27.3 L MCV 89 MCH 28.6 MCHC 32.1 RDW 18.1 H Plt Count 182 Sodium 142.1 Potassium 4.0 Chloride 109 H Carbon Dioxide 23 Anion Gap 10 BUN 23 H Creatinine 0.69 Est GFR ( Amer) > 60 Est GFR (Non-Af Amer) > 60 Glucose 86 Calcium 8.4 Total Bilirubin 0.9 AST 30 ALT 26 Alkaline Phosphatase 218 H Total Protein 5.1 L Albumin 2.5 L Impressions: Chest X-Ray 01/18/18 20:12 IMPRESSION: Chronic lung changes with no acute cardiopulmonary disease. Head CT 01/18/18 20:12 IMPRESSION: Involutional changes of aging with no acute intracranial process. EVIDENCE OF ACUTE STROKE: NO. Abdomen Ultrasound 01/19/18 00:00 IMPRESSION: No acute finding. Qualifiers - * PATEINT BEING DISCHARGED WITH ANY OF THE FOLLOWING DIAGNOSIS?: No
== END 2018-01-22 16:12 | disposition hospice, home (50) | DRG 812 ==
LOC: ER 19:57 → EH 01-19 00:29 → 4S 01-19 02:31
PROVIDERS: ADMIT Family Medicine; ATTEND Family Medicine
PROC: 30233N1 Transfusion of Nonautologous Red Blood Cells into Peripheral Vein, Percutaneous Approach (ICD-10-PCS; principal; 2018-01-19)
DX: D50.9 Iron deficiency anemia, unspecified (principal); E46 Unspecified protein-calorie malnutrition; R64 Cachexia; F02.81 Dementia in other diseases classified elsewhere, unspecified severity, with behavioral disturbance; F22 Delusional disorders; G30.9 Alzheimer's disease, unspecified; Z68.1 Body mass index [BMI] 19.9 or less, adult; E86.0 Dehydration; R15.9 Full incontinence of feces; Z78.1 Physical restraint status; F17.200 Nicotine dependence, unspecified, uncomplicated; E53.8 Deficiency of other specified B group vitamins; N40.1 Benign prostatic hyperplasia with lower urinary tract symptoms; M19.90 Unspecified osteoarthritis, unspecified site; Z85.038 Personal history of other malignant neoplasm of large intestine; Z90.49 Acquired absence of other specified parts of digestive tract; Z92.21 Personal history of antineoplastic chemotherapy; S40.029A Contusion of unspecified upper arm, initial encounter; S80.10XA Contusion of unspecified lower leg, initial encounter; W19.XXXA Unspecified fall, initial encounter; Y92.009 Unspecified place in unspecified non-institutional (private) residence as the place of occurrence of the external cause
CPT/HCPCS: 36415; 36430; 51701; 70450; 71045; 76700; 80048; 80053; 81001; 82140; 82272; 82550; 82607; 82728; 82746; 83540; 83550; 84466; 84484; 85025; 85027; 85045; 85610; 85730; 86850; 86900; 86901; 86920; 87040; 87086; 87088; 87186; 93976; 96360; 99285; J0696; J1650; J2060; J7030; P9016